=== PATIENT | female | born 1980 | race Caucasian/White ===

== ENCOUNTER 2017-05-06 00:35 | Emergency (ER) | payer SELFPAY ==
[~2017-05-06] VITALS: Ht 154.9 cm; Wt 60.3 kg
[2017-05-06 00:44] VITALS: BP 138/95
--- NOTE | 2017-05-06 00:44 | NUR ---
PT TAKEN TO OF
[2017-05-06] MEDS ORDERED: HYDROcodone/APAP 5/325 MG 1 TAB TAB PO ONE (00:45)
[2017-05-06] MEDS ORDERED: KETOROLAC 30 MG/ML VIAL IM ONE (00:45)
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
[2017-05-06 01:54] VITALS: BP 132/89
--- NOTE | 2017-05-06 01:55 | NUR ---
Patient discharged with v/s stable. Written and verbal after care instructions given and explained. Patient alert, oriented and verbalized understanding of instructions. Ambulatory with steady gait. All questions addressed prior to discharge. ID band removed. Patient advised to follow up with PMD. Rx of NAPROSYN 500MG BID, VALIUM 5MG TID PRN given. Patient educated on indication of medication including possible reaction and side effects. Opportunity to ask questions provided and answered.
== END 2017-05-06 01:55 | disposition home or self-care (01) ==
LOC: MED 00:35
DX: S20.219A Contusion of unspecified front wall of thorax, initial encounter (principal); M25.562 Pain in left knee; R03.0 Elevated blood-pressure reading, without diagnosis of hypertension; V43.62XA Car passenger injured in collision with other type car in traffic accident, initial encounter; Y93.89 Activity, other specified; Y92.89 Other specified places as the place of occurrence of the external cause; Y99.8 Other external cause status
CPT/HCPCS: 71010; 73562; 96372; 99284; J1885

== ENCOUNTER 2018-10-18 21:13 | Emergency (ER) | payer MEDICAID ==
[~2018-10-18] VITALS: Ht 157.5 cm; Wt 59.0 kg
[2018-10-18 21:23] VITALS: BP 140/83
--- NOTE | 2018-10-18 21:30 | NUR ---
PT RETURNED TO LOBBY IN STABLE CONDITION. LABS ORDERED. EKG DONE IN TRIAGE. URINE SAMPLE COLLECTED.
[2018-10-18 22:02] LABS: BASOPHILS # (AUTO) 0.1 K/uL (0.00-0.22); BASOPHILS % (AUTO) 0.4 % (0.0-2.0); EOSINOPHILS # (AUTO) 0.1 K/uL (0-0.4); EOSINOPHILS % (AUTO) 1.1 % (0.0-4.0); HEMATOCRIT 42.8 % (36-48); HEMOGLOBIN 13.6 g/dL (12.0-16.0); LYMPHOCYTES # (AUTO) 2.9 K/uL (2.5-16.5); LYMPHOCYTES % (AUTO) 22.7 % (20.5-51.1); MEAN CORPUSCULAR HEMOGLOBIN 28 pg (27-31); MEAN CORPUSCULAR HGB CONC 32 g/dL (33-37); MEAN CORPUSCULAR VOLUME 87.3 fL (80-94); MONOCYTES # (AUTO) 0.6 K/uL (0.8-1.0); MONOCYTES % (AUTO) 4.5 % (1.7-9.3); NEUTROPHILS # (AUTO) 9.2 K/uL (1.8-7.7); NEUTROPHILS % (AUTO) 71.3 % (42.2-75.2); PLATELET COUNT (AUTO) 284 K/uL (140-450); RED CELL DISTRIBUTION WIDTH 13.1 % (11.6-13.7); WHITE BLOOD COUNT (AUTO) 12.9 K/uL (4.8-10.8)
[2018-10-18 22:10] LABS: ANION GAP 17.9 (8-16); CREATININE 0.6 mg/dL (0.6-1.3); POTASSIUM 3.9 mmol/L (3.5-5.1)
[2018-10-18 22:16] LABS: TOTAL BILIRUBIN 0.4 mg/dL (0.0-1.0)
[2018-10-18 22:16] LABS: APPEARANCE,URINE CLEAR (CLEAR); BILIRUBIN,URINE NEGATIVE (NEGATIVE); BLOOD, URINE NEGATIVE (NEGATIVE); COLOR,URINE YELLOW (YELLOW); LEUKOCYTE ESTERASE ,URINE NEGATIVE (NEGATIVE); NITRITE, URINE NEGATIVE (NEGATIVE); UGLUCOSE TRACE (NEGATIVE)
--- NOTE | 2018-10-18 22:22 | NUR ---
PT PRESENTS TO ED WITH SOB AND FACIAL [place]ING[place] X30 MIN. VSS. POSITIONED IN BED WITH HOB ELEVATED. ACCOMPANIED BY . ER DM AWARE. CONTINUE TO MONITOR.
--- NOTE | 2018-10-18 22:22 | NUR ---
TO ER BED 11
[2018-10-18 22:26] LABS: RBC,URINE 0-5 (RARE) /HPF (0-5); WBC,URINE 0-5 (RARE) /HPF (0-5)
[2018-10-18] MEDS ORDERED: ALBUTEROL SULFATE/IPRATROPIU 3 ML SOL IH ONE (23:05)
[2018-10-18 23:28] VITALS: BP 140/83
--- NOTE | 2018-10-18 23:28 | NUR ---
PT REFUSED HHN TX. NO SOB OR DISTRESS NOTED. O2 SATURATIONS ON ROOM AIR ARE 100%, PULSE 86, RATE 16, BREATH SOUNDS CLEAR BILATERALLY. DR. DESIR MADE AWARE.
== END 2018-10-18 23:28 | disposition home or self-care (01) ==
LOC: MED 21:13
DX: M94.0 Chondrocostal junction syndrome [Tietze] (principal); E11.9 Type 2 diabetes mellitus without complications; I10 Essential (primary) hypertension
CPT/HCPCS: 36415; 71045; 80053; 81001; 81025; 84484; 85025; 93005; 99284; J7620

== ENCOUNTER 2019-02-11 16:20 | Emergency (ER) | payer MEDICAID ==
[~2019-02-11] VITALS: Ht 154.9 cm; Wt 61.7 kg
[2019-02-11 16:28] VITALS: BP 133/63
--- NOTE | 2019-02-11 16:36 | NUR ---
WAIT IN LOBBY
--- NOTE | 2019-02-11 16:44 | NUR ---
PT AMB TO BED 11.
--- NOTE | 2019-02-11 16:57 | NUR ---
C/O N/V, EPIGASTRIC PAIN & MID BACK PAIN X 3 DAYS. . DENIES N/V/D; SKIN IS PINK/WARM/DRY; AAOX4 WITH EVEN AND STEADY GAIT; LUNGS CLEAR BL; HR EVEN AND REGULAR; PT DENIES ANY FEVER, CP, SOB, OR COUGH AT THIS TIME; PATIENT STATES PAIN OF 10/10 AT THIS TIME; VSS; PATIENT POSITIONED FOR COMFORT; HOB ELEVATED; BEDRAILS UP X2; BED DOWN. ER MD MADE AWARE OF PT STATUS.
[2019-02-11] MEDS ORDERED: NACL 0.9% 1,000 ML IV SCH (17:31)
[2019-02-11] MEDS ORDERED: MORPHINE SULFATE 4 MG/ML SYR IVP ONE (17:35)
[2019-02-11] MEDS ORDERED: ONDANSETRON 4 MG/2 ML VIAL IVP ONE (17:35)
[2019-02-11 18:02] LABS: BASOPHILS # (AUTO) 0.1 K/uL (0.00-0.22); BASOPHILS % (AUTO) 0.6 % (0.0-2.0); EOSINOPHILS # (AUTO) 0.2 K/uL (0-0.4); EOSINOPHILS % (AUTO) 2.2 % (0.0-4.0); HEMATOCRIT 38.7 % (36-48); HEMOGLOBIN 12.9 g/dL (12.0-16.0); LYMPHOCYTES % (AUTO) 21.7 % (20.5-51.1); MEAN CORPUSCULAR HEMOGLOBIN 29 pg (27-31); MEAN CORPUSCULAR HGB CONC 33 g/dL (33-37); MONOCYTES # (AUTO) 0.5 K/uL (0.8-1.0); MONOCYTES % (AUTO) 5.4 % (1.7-9.3); NEUTROPHILS # (AUTO) 6.6 K/uL (1.8-7.7); NEUTROPHILS % (AUTO) 70.1 % (42.2-75.2); PLATELET COUNT (AUTO) 231 K/uL (140-450); RED CELL DISTRIBUTION WIDTH 13.5 % (11.6-13.7); WHITE BLOOD COUNT (AUTO) 9.4 K/uL (4.8-10.8)
--- NOTE | 2019-02-11 18:19 | NUR ---
pt stated she had sob after she got morphine last time . told ERMD. PER MD, HOLD MEDS
[2019-02-11 18:26] LABS: ANION GAP 14.2 (8-16); CARBON DIOXIDE 27.5 mmol/L (21-32); CREATININE 0.6 mg/dL (0.6-1.3); POTASSIUM 3.7 mmol/L (3.5-5.1)
[2019-02-11 18:35] LABS: ALBUMIN 3.9 g/dL (3.4-5.0); TOTAL BILIRUBIN 0.6 mg/dL (0.0-1.0)
[2019-02-11] MEDS ORDERED: fentaNYL 0.05 MG/ML VIAL IVP ONE (18:40)
--- NOTE | 2019-02-11 19:08 | NUR ---
ENDORSED CARE TO PM NURSE PASCUAL VELAZQUEZ.
--- NOTE | 2019-02-11 19:13 | NUR ---
PT SITTING UP IN BED, VSS. FAMILY AT BEDSIDE. PT STATES HER PAIN HAS DECREASED DUE TO RECENT PAIN MEDICATION. PAIN LEVEL IS 5/10 AT THIS TIME.
--- NOTE | 2019-02-11 20:00 | NUR ---
ER AT PT BEDSIDE
[2019-02-11 20:22] VITALS: BP 122/65
[2019-02-11 21:47] LABS: APPEARANCE,URINE CLEAR (CLEAR); BILIRUBIN,URINE NEGATIVE (NEGATIVE); BLOOD, URINE 3+ (NEGATIVE); COLOR,URINE YELLOW (YELLOW); LEUKOCYTE ESTERASE ,URINE NEGATIVE (NEGATIVE); NITRITE, URINE NEGATIVE (NEGATIVE); PH,URINE 7.5 (5.0-9.0); UGLUCOSE NEGATIVE (NEGATIVE)
[2019-02-11 22:00] LABS: RBC,URINE 11-20 (MOD) /HPF (0-5); WBC,URINE 0-5 /HPF (0-5)
== END 2019-02-11 20:23 | disposition home or self-care (01) ==
LOC: MED 16:20
DX: K80.20 Calculus of gallbladder without cholecystitis without obstruction (principal); E11.9 Type 2 diabetes mellitus without complications
CPT/HCPCS: 36415; 76705; 80053; 81001; 81025; 83690; 84703; 85025; 96361; 96374; 96375; 99284; J2405; J3010; J7030; Q0092; J2270